=== PATIENT | female | born 1990 | race African-American/Black ===

== ENCOUNTER 2020-09-05 14:24 | Emergency (ER) | payer OTHER ==
[~2020-09-05] VITALS: Ht 165.1 cm; Wt 73.0 kg
[2020-09-05 14:30] VITALS: BP 150/88
== END 2020-09-05 14:55 | disposition left against medical advice (07) ==
LOC: ER 14:43
DX: Z53.21 Procedure and treatment not carried out due to patient leaving prior to being seen by health care provider (principal); M54.2 Cervicalgia; D57.1 Sickle-cell disease without crisis; Z88.6 Allergy status to analgesic agent